=== PATIENT | female | born 2005 | race Caucasian/White ===

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

== ENCOUNTER 2023-08-24 18:50 | Emergency (ER) | payer SELFPAY ==
[~2023-08-24] VITALS: Ht 175.3 cm; Wt 104.0 kg
[~2023-08-24 18:50] MED LIST: CEPH500C PO; PRED20TA2 PO; PROM1SOL4 PO
[2023-08-24] MEDS: CLINDAMYCIN 900MG IV 50 ML IV ONE (21:30)
[2023-08-24] MEDS: cefTRIAXone 1GM/50ML D5W 50 ML IV ONE (21:30)
[2023-08-24] MEDS ORDERED: ACET500T58 PO (21:35)
[2023-08-24] MEDS ORDERED: CLIN1CAP70 PO (21:35)
[2023-08-24] MEDS: cefTRIAXone SOD 1,000 MG VL IM ONE (22:34)
[2023-08-24] MEDS: BENZOCAINE (DENTAL) 20 % SPRAY 60ML MT ONE (22:35)
[2023-08-24 22:40] VITALS: BP 121/72; PULSE 78; RESP 18; TEMP 98.1; O2SAT 98
== END 2023-08-24 22:55 | disposition home or self-care (01) ==
LOC: ER 18:50
DX: K04.7 Periapical abscess without sinus (principal); Z88.0 Allergy status to penicillin; Z79.1 Long term (current) use of non-steroidal anti-inflammatories (NSAID); Z79.52 Long term (current) use of systemic steroids; Z90.89 Acquired absence of other organs; F17.210 Nicotine dependence, cigarettes, uncomplicated
CPT/HCPCS: 96372; 99283; J0696; J3490

== ENCOUNTER 2024-06-25 21:06 | Emergency (ER) | payer MEDICAID ==
[~2024-06-25] VITALS: Ht 175.3 cm; Wt 95.8 kg
[~2024-06-25 21:06] MED LIST changes: +ACET500T58 PO; +CLIN1CAP70 PO
[2024-06-25 21:45] VITALS: BP 103/68; PULSE 101; RESP 21; TEMP 98.4; O2SAT 95
[2024-06-25] MEDS: ONDANSETRON HCL 4 MG/2 ML VIAL IV ONE (21:45)
--- NOTE | 2024-06-25 21:45 | ED.PDOC ---
SOB-HPI HPI Comments 19-year-old female came to ER due to shortness of breath. Patient denies any medical problems. States for the past few days she has been having productive cough with yellowish phlegm associated shortness of breath. Denies any fever nausea or vomiting. Denies any possibility of . Upon arrival, blood pressure was 90/60 mm Hg, tachycardic at 110 beats per minute, and saturating at 90% room air Chief Complaint: Shortness of breath Time Seen by MD: 21:45 Primary Care Provider: UNKNOWN Reviewed notes: Nurses Notes Information Source: Patient Mode of Arrival: Ambulatory Severity: Moderate Timing: Hours Duration: Intermittent Context: At Rest, With Light Exertion History of: None Prehospital treatment: None Associated Signs and Symptoms: Cough If cough with SOB: Productive, Yellow Past Medical History PAST MEDICAL HISTORY: Denies Surgical History: Tonsillectomy MANAGER GAME History: No Pertinent MANAGER GAME History Family History Family History: No family hx of Cancer, No family hx of DM, No family hx of Heart marian, Family hx of heart marian Social History Smoker: Cigarettes, Less Than 1 Pack/Day Alcohol: Denies ETOH Use Drugs: Denies Drug Use Lives In: Home Constitutional: denies: chills, diaphoresis, fatigue, fever, malaise, sweats, weakness, others EENTM: denies: blurred vision, double vision, ear bleeding, ear discharge, ear drainage, ear pain, ear ringing, eye pain, eye redness, hearing loss, mouth pain, mouth swelling, nasal discharge, nose bleeding, nose congestion, nose pain, photophobia, tearing, throat pain, throat swelling, voice changes, others Respiratory: reports: cough, SOB at rest, shortness of breath, SOB with excertion; denies: hemoptysis, orthopnea, stridor, wheezing, others Cardiovascular: denies: chest pain, dizzy spells, diaphoresis, Dyspnea on exertion, edema, irregular heart beat, left arm pain, lightheadedness, palpitations, PND, syncope, others Gastrointestinal: denies: abdomen distended, abdominal pain, blood streaked bowels, constipated, diarrhea, dysphagia, difficulty swallowing, hematemesis, melena, nausea, poor appetite, poor fluid intake, rectal bleeding, rectal pain, vomiting, others Genitourinary: denies: abnormal vagina bleeding, burning, dyspareunia, dysuria, flank pain, frequency, hematuria, incontinence, pain, , vagina discharge, urgency, others Neurological: denies: dizziness, fainting, headache, left sided numbness, left sided weakness, numbness, paresthesia, pre-existing deficit, right sided numbness, right sided weakness, seizure, speech problems, tingling, tremors, weakness, others Musculoskeletal: denies: back pain, gout, joint pain, joint swelling, muscle pain, muscle stiffness, neck pain, others Integumetry: denies: bruises, change in color, change in hair/nails, dryness, laceration, lesions, lumps, rash, wounds, others Allergic/Immunocompromised: denies: Difficulty Healing, Frequent Infections, Hives, Itching, others Hematologic/Lymphatic: denies: anemia, blood clots, easy bleeding, easy bruising, swollen glands, others Endocrine: denies: excessive hunger, excessive sweating, excessive thirst, excessive urination, flushing, intolerance to cold, intolerance to heat, unexplained weight gain, unexplained weight loss, others Psychiatric: denies: anxiety, bipolar disorder, depression, hopeless, panic disorder, schizophrenia, sleepless, suicidal, others Physical Exam General Appearance: No Apparent Distress, Normal HEENT: Normal ENT Inspection, Pharynx Normal, TMs Normal Neck: Full Range of Motion, Non-Tender, Normal, Normal Inspection Respiratory: Chest Non-Tender, Lungs Clear, No Accessory Muscle Use, No Respiratory Distress, Normal Breath Sounds Cardiovascular: No Edema, No JVD, No Murmur, No Gallop, Normal Peripheral Pulses, Regular Rate/Rhythm Breast Exam: Deferred Gastrointestinal: No Organomegaly, Non Tender, No Pulsatile Mass, Normal Bowel Sounds, Soft Genitalia: Deferred Pelvic: Deferred Rectal: Deferred Extremities: No calf tenderness, Normal capillary refill, Normal inspection, Normal range of motion, Non-tender, No pedal edema Musculoskeletal : Apperance: Normal Neurologic: Alert, pharmacy data analyst II-XII nml as Tested, No Motor Deficits, Normal Affect, Normal Mood, No Sensory Deficits Cerebellar Function: Normal Reflexes: Normal Skin: Dry, Normal Color, Warm Lymphatic: No Adenopathy Was a procedure done? Was a procedure done?: No Differential Dx Differential Diagnosis: Anxiety, Bronchitis, Pneumonia, Respiratory Distress, URI X-Ray, Labs, Meds, VS Vital Signs Date Time Temp Pulse Resp B/P (MAP) Pulse Ox O2 Delivery O2 Flow Rate FiO2 06/25/24 21:40 97.4 112 18 91/63 (72) 85 97.4 Lab Test 06/25/24 22:47 06/25/24 22:22 06/25/24 21:55 Range/Units Troponin I High Sensitivity < 3 L < 3 L </=34 ng/L Urine Color Yellow Yellow Urine Clarity Turbid H Clear Urine pH 5.5 5.0-9.0 Urine Specific Nak[place] 1.032 1.001-1.035 Urine Protein 1+ H Negative Urine Ketones Trace Negative Urine Blood Negative Negative /uL Urine Nitrite Negative Negative Urine Bilirubin Negative Negative Urine Urobilinogen 3 H Negative mg/dL Urine Leukocyte Esterase Trace Negative /uL Urine RBC 3 0 - 4 /hpf Urine Microscopic WBC 14 H 0-5 /HPF Urine Squamous Epithelial Cells Many <5 /hpf Urine Bacteria Few H None Seen /hpf Urine Mucus Few None Seen Urine Glucose Normal Normal mg/dL Urine Test Negative Negative Urine Opiates Screen Neg NEGATIVE Urine Fentanyl Screen Pos NEGATIVE Urine Barbiturates Screen Neg NEGATIVE Urine Phencyclidine Screen Neg NEGATIVE Urine Amphetamines Screen Pos NEGATIVE Urine Benzodiazepines Screen Neg NEGATIVE Urine Cocaine Screen Neg NEGATIVE Urine Cannabinoids Screen Neg NEGATIVE White Blood Count 11.7 H 4.4-10.8 10^3/uL Red Blood Count 5.15 4.0-5.20 10^6/uL Hemoglobin 14.0 12.2-16.2 g/dL Hematocrit 43.2 36.0-46.0 % Mean Corpuscular Volume 83.8 80.0-100.0 fL Mean Corpuscular Hemoglobin 27.2 L 28.0-32.0 pg Mean Corpuscular Hemoglobin Concent 32.4 32.0-36.0 g/dL Red Cell Distribution Width 15.2 H 11.8-14.3 % Platelet Count 278 140-450 10^3/uL Mean Platelet Volume 8.6 6.9-10.8 fL Neutrophils (%) (Auto) 74.6 37.0-80.0 % Lymphocytes (%) (Auto) 18.0 10.0-50.0 % Monocytes (%) (Auto) 5.4 0.0-12.0 % Eosinophils (%) (Auto) 1.3 0.0-7.0 % Basophils (%) (Auto) 0.7 0.0-2.0 % Neutrophils # (Auto) 8.7 H 1.6-8.6 10 ^3/uL Lymphocytes # (Auto) 2.1 0.4-5.4 10 ^3/uL Monocytes # (Auto) 0.6 0-1.3 10 ^3/uL Eosinophils # (Auto) 0.1 0-0.8 10 ^3/uL Basophils # (Auto) 0.1 0-0.2 10 ^3/uL Nucleated Red Blood Cells 0.0 % Sodium Level 141 136-145 mmol/L Potassium Level 4.2 3.5-5.1 mmol/L Chloride Level 104 98-107 mmol/L Carbon Dioxide Level 28 20-31 mmol/L Anion Gap 9 5-15 Blood Urea Nitrogen 12 9-23 mg/dL Creatinine 0.87 0.550-1.02 mg/dL Glomerular Filtration Rate Calc 97 >90 mL/min BUN/Creatinine Ratio 13.8 10.0-20.0 Serum Glucose 98 74-106 mg/dL Lactic Acid Level 1.6 0.4-2.0 mmol/L Calcium Level 10.5 H 8.7-10.4 mg/dL Total Bilirubin 0.3 0.2-1.0 mg/dL Aspartate Amino Transferase (AST) 14 13-40 U/L Alanine Aminotransferase (ALT) 12 7-40 U/L Alkaline Phosphatase 92 46-116 U/L B-Type Natriuretic Peptide 9.07 0-100 pg/mL Total Protein 7.9 5.7-8.2 g/dL Albumin 4.8 3.2-4.8 g/dL Current Medications Medications (Trade) Dose Ordered Sig/Eleanor Route Start Time Stop Time Status Last Admin Vancomycin HCl 200 ml @ 200 mls/hr ONCE ONCE IV 06/25/24 21:45 06/25/24 22:44 DC 06/25/24 22:13 Time of 1ST Reevaluation: 21:41 Reevaluation 1ST: Unchanged Patient Education/Counseling: Diagnosis, Treatment Family Education/Counseling: No Family Present Departure 1 Departure Time of Disposition: 23:38 (Patient presents with concern for sepsis. Patient given 3 L of fluid empirically started on antibiotics we will admit patient for further workup) Impression: Primary Impression: Sepsis Qualified Codes: A41.9 - Sepsis, unspecified organism Additional Impressions: Fever Qualified Codes: R50.9 - Fever, unspecified Generalized weakness Disposition: ADMITTED INPATIENT Admit to: Med Surg Condition: Serious Critical Care Note Critical Care Time?: Yes Critical care comment: Sepsis Authorized and Performed by: Tracey Haskins MD Total critical care time: Approximately 39 minutes Due to a high probability of clinically significant, life threatening deterioration, the patient required my highest level of preparedness to intervene emergently and I personally spent this critical care time directly and personally managing the patient. This critical care time included obtaining a history; examining the patient; pulse oximetry; ordering and review of studies; arranging urgent treatment with development of a management plan; evaluation of patient's response to treatment; frequent reassessment; and, discussions with other providers. This critical care time was performed to assess and manage the high probability of imminent, life-threatening deterioration that could result in multi-organ failure. It was exclusive of separately billable procedures and treating other patients and teaching time. Please see my other sections and the rest of the note for further information on patient assessment and treatment. Stability Stability form required: No Heart Score Heart Score: Heart Score Response (Comments) Value History N/A 0 EKG N/A 0 Age N/A 0 Risk Factors N/A 0 Troponin N/A 0 Total 0 I personally scribed for TRACEY HASKINS MD ([email or web address]) on 06/25/24 at 21:45. Electronically submitted by Zbigniew Mora ([facility]). TRACEY HASKINS MD June 25, 2024 21:45
[2024-06-25 22:06] LABS: Basophils # (auto) 0.1 10 ^3/uL (0-0.2); Basophils % (auto) 0.7 % (0.0-2.0); Eosinophils # (auto) 0.1 10 ^3/uL (0-0.8); Eosinophils % (auto) 1.3 % (0.0-7.0); Hematocrit 43.2 % (36.0-46.0); Lymphocytes # (auto) 2.1 10 ^3/uL (0.4-5.4); Mean Corpuscular Hemoglobin 27.2 pg (28.0-32.0); Mean Corpuscular Hgb Conc. 32.4 g/dL (32.0-36.0); Mean Corpuscular Volume 83.8 fL (80.0-100.0); Monocytes # (auto) 0.6 10 ^3/uL (0-1.3); Monocytes % (auto) 5.4 % (0.0-12.0); Neutrophils # (auto) 8.7 10 ^3/uL (1.6-8.6); Neutrophils % (auto) 74.6 % (37.0-80.0); Platelet Count (auto) 278 10^3/uL (140-450); Red Blood Cells 5.15 10^6/uL (4.0-5.20); Red Cell Distribution Width 15.2 % (11.8-14.3); White Blood Cell 11.7 10^3/uL (4.4-10.8)
[2024-06-25] MEDS: VANCOMYCIN 1GM/200ML PM 200 ML IV ONE (22:13)
[2024-06-25 22:24] LABS: Alanine Aminotransferase 12 U/L (7-40); Albumin 4.8 g/dL (3.2-4.8); Alkaline Phosphatase 92 U/L (46-116); Anion Gap 9 (5-15); Aspartate Aminotransferase 14 U/L (13-40); BUN/Creatinine Ratio 13.8 (10.0-20.0); Bilirubin, Total 0.3 mg/dL (0.2-1.0); Blood Urea Nitrogen 12 mg/dL (9-23); Carbon Dioxide 28 mmol/L (20-31); Chloride 104 mmol/L (98-107); Glucose 98 mg/dL (74-106); Potassium 4.2 mmol/L (3.5-5.1); Sodium 141 mmol/L (136-145); Total Protein 7.9 g/dL (5.7-8.2)
[2024-06-25 22:28] LABS: Calcium 10.5 mg/dL (8.7-10.4)
[2024-06-25 22:40] LABS: Urine Bacteria FEW /hpf (None Seen); Urine Blood Negative /uL (Negative); Urine Clarity Turbid (Clear); Urine Color Yellow (Yellow); Urine Mucus FEW (None Seen); Urine Protein, UAD 1+ (Negative); Urine Specific Gravity 1.032 (1.001-1.035); Urine Squamous Epithelial Cell MANY /hpf (<5); Urine Urobilinogen 3 mg/dL (Negative); Urine WBC 14 /HPF (0-5); Urine pH 5.5 (5.0-9.0)
[2024-06-25 22:47] LABS: Cannabinoid Screen, Urine Neg (NEGATIVE)
[2024-06-25 22:48] LABS: Amphetamine Screen, Urine Pos (NEGATIVE); Barbiturate Scree,Urine Neg (NEGATIVE); Benzodiazephine Screen, Urine Neg (NEGATIVE); Cocaine Screen, Urine Neg (NEGATIVE); Opiate Scree,Urine Neg (NEGATIVE); Phencyclidine Screen, Urine Neg (NEGATIVE)
--- NOTE | 2024-06-25 23:23 | DVH ---
CHEST RADIOGRAPH Indication: sob Technique: Single frontal view of the chest was obtained Comparison: XY CHEST XRAY 1 VIEW on DOS: 06/06/23 FINDINGS: Lines and Tubes: None Lungs: Bilateral perihilar peribronchial thickening questionable bronchitis Pleura: No effusion. No pneumothorax. Cardiomediastinal contours: Unremarkable Bones: No acute osseous abnormality. IMPRESSION: 1. Bilateral perihilar peribronchial thickening questionable bronchitis.
[2024-06-25] MEDS: SODIUM CHLORIDE 0.9% 3,000 ML IV ONE (23:25)
[2024-06-25] MEDS: CEFEPIME 2GM/50ML NS 50 ML IV ONE (23:28)
== END 2024-06-26 01:47 | disposition left against medical advice (07) ==
LOC: ER 21:13
DX: A41.9 Sepsis, unspecified organism (principal); R53.1 Weakness; R50.9 Fever, unspecified; F17.210 Nicotine dependence, cigarettes, uncomplicated; Z90.89 Acquired absence of other organs; Z79.899 Other long term (current) drug therapy; Z32.02 Encounter for pregnancy test, result negative
CPT/HCPCS: 36415; 71045; 80053; 80307; 81001; 81025; 83605; 83880; 84484; 85025; 87040; 96365; 96366; 96367; 99291; J0692; J3370; J2405

== ENCOUNTER 2024-10-12 22:09 | Emergency (ER) | payer MEDICAID ==
[~2024-10-12] VITALS: Ht 175.3 cm; Wt 86.3 kg
--- NOTE | 2024-10-12 22:22 | ED.PDOC ---
Altered Mental Status HPI Comments HPI: 19 year old female presents to the emergency department via EMS with a chief complaint of overdose onset today (10/12/24). Per EMS, patient was inside [facility], restroom stall, was found by bystander, unresponsive by toilet. She was given 2 mg Narcan IN, 1 mg Narcan IV, responded, was GCS 3. Upon ED arrival, patient is back to baseline, answering questions appropriately. Patient states she smoked Fentanyl, was 40 days sober, is currently homeless. No other symptoms or modifying factors present at this time. Initial Vitals BP: 148/96 HR: 109 RR: 20 O2: 99% Temp: 98.7 F Past Medical History: Denies Past Surgical History: tonsillectomy Social History: Denies ETOH. Smokes cigarettes, fentanyl use Medications: Denies Allergies: Penicillin Maki: HPI: Poor Historian. Homeless, fentanyl use. Past Medical History: Past Surgical History: REVIEW OF SYSTEMS: CONSTITUTIONAL: Denies acute: fever, diaphoresis, chills, HEAD: Denies acute: headache, photophobia Eyes: Denies acute: Double vision, vision loss, eye pain, eye discharge. EARS: Denies acute: tinnitus, hearing loss, ear discharge, ear pain, THROAT: Denies acute: sore throat, swelling, difficulty swallowing , pain with swallowing, change in voice. NECK: Denies acute: neck pain, neck swelling, stiff neck. HEART: Denies acute : chest pain, palpitations, LUNGS: Denies acute: SOB, wheezing, cough, hemoptysis ABDOMEN: Denies acute: abdominal pain, Nausea, Vomiting, diarrhea, melena , hematemesis, hematochezia SKIN: Denies acute: rash, redness, lesions, itchiness. EXTREMITIES: Denies acute: calf pain, numbness, tingling, weakness, denies pain in extremity. Denies acute: Low back pain. Neuro: Denies acute: focal neurological deficit, motor or sensory focal neurological deficit, tremors, seizure like activity, confusion, dizziness, change in mental status, loss of bowel or bladder function, cauda equina like symptoms. : Denies acute: dysuria, hematuria, flank pain, increase in urinary frequency. PSYCH: Denies acute: hallucination, suicidal ideation, homicidal ideation. FEMALE: Denies acute: abnormal vaginal bleeding, foul odor, unusual discharge. PHYSICAL EXAM: General: -----no---acute distress, awake and alert. Head: normocephalic, atraumatic. Neck: supple, trachea is midline, no swelling. Cervical spine: Palpation of the posterior midline of the cervical spine reveals no focal swelling, erythema, focal tenderness to palpation. Patient has normal range of motion. Throat: Normal phonation. Eyes:, no erythema, no purulent discharge, no proptosis, no icterus. Heart: regular rate, regular rhythm, no significant murmur appreciated. Lungs: no apparent respiratory distress, Able to speak in full sentences. No wheezing, no rhonchi, no crackles. No stridors Clear to auscultation bilaterally. Abdomen: non tender to palpation, non distended, soft, no guarding, no rebound, + bowel sounds. Neuro: Awake, Alert, oriented to name, self, situation, follows commands GCS=15. Speech is normal. Skin: no petechia, no purpura, no cyanosis, non-pale, not jaundice. Lower extremities: --no - Pitting edema no deformity, no focal swelling, no calf TTP. Makes eye contact. moves all four extremities. Face: no apparent facial droop. No nuchal rigidity, Kernig's sign, Brudzinski's sign, no meningeal signs. ED COURSE: DISCLAIMER: This medical document was created using an electronic medical record system with voice recognition software and computerized dictation system. Although this document has been carefully reviewed, there might still be some phonetic and typographical errors. Occasional wrong-word or "sound-alike" substitutions may have occurred due to the inherent limitations of voice recognition software. These areas are purely typographical due to imperfections of the software programs and do not reflect any compromise in the patient's medical care. Please read the chart carefully and recognize, using context, where these substitutions have occurred. Time Seen by MD: 22:15 Primary Care Provider: UNKNOWN Reviewed Notes: Medications, Allergies Allergies: Coded Allergies: Penicillins (Verified Allergy, Severe, 06/06/23) Home Meds Active Scripts Acetaminophen (Acetaminophen) 500 Mg Tab, 500 MG PO Q4HPRN, #30 TAB 0 Refills Prov:FIFI VELASQUEZ 08/24/23 Clindamycin Hcl (Clindamycin Hcl) 300 Mg Cap, 300 MG PO QID for 7 Days, #28 CAP 0 Refills Prov:FIFI VELASQUEZ 08/24/23 Promethazine-Dm (Promethazine Dm 6.25-15 mg/5Ml) 1 Claudia Claudia, 5 ML PO TID, #150 ML Prov:JL DIAMOND 06/06/23 Cephalexin Monohydrate (Cephalexin) 500 Mg Cap, 1 CAP PO QID, #28 CAP Prov:JL DIAMOND 06/06/23 Prednisone (Prednisone) 20 Mg Tab, 60 MG PO DAILY, #15 TAB Prov:JL DIAMOND 06/06/23 Information Source: Patient, Emergency Med Personnel Mode of Arrival: Ambulatory Severity: Moderate Timing: Hours Duration: Since onset Prehospital treatment: Other (Narcan 3 mg) Quality: Decreased Alertness, Change in Behavior History of: Other Past Medical History PAST MEDICAL HISTORY: Denies Surgical History: Tonsillectomy COOK CHIEF History: No Pertinent COOK CHIEF History Family History Family History: No family hx of Cancer, No family hx of DM, No family hx of Heart marian, Family hx of heart marian Social History Smoker: Cigarettes, Less Than 1 Pack/Day Alcohol: Denies ETOH Use Drugs: Other Lives In: Homeless Was a procedure done? Was a procedure done?: No X-Ray, Labs, Meds, VS Vital Signs Date Time Temp Pulse Resp B/P (MAP) Pulse Ox O2 Delivery O2 Flow Rate FiO2 10/13/24 02:00 110 20 106/58 (74) 92 10/13/24 00:30 108 13 92/45 (61) 96 10/12/24 22:52 93 14 96 Room Air* 0 21 10/12/24 22:52 98.1 97 18 106/66 (79) 98 98.1 10/12/24 22:20 98.7 109 20 148/96 99 98.7 10/12/24 22:10 98 Lab Test 10/13/24 00:21 10/12/24 22:33 Range/Units POC Glucose 112 H 70-106 mg/dl White Blood Count 13.4 H 4.4-10.8 10^3/uL Red Blood Count 4.87 4.0-5.20 10^6/uL Hemoglobin 13.7 12.2-16.2 g/dL Hematocrit 40.7 36.0-46.0 % Mean Corpuscular Volume 83.6 80.0-100.0 fL Mean Corpuscular Hemoglobin 28.1 28.0-32.0 pg Mean Corpuscular Hemoglobin Concent 33.6 32.0-36.0 g/dL Red Cell Distribution Width 14.7 H 11.8-14.3 % Platelet Count 352 140-450 10^3/uL Mean Platelet Volume 8.6 6.9-10.8 fL Neutrophils (%) (Auto) 69.3 37.0-80.0 % Lymphocytes (%) (Auto) 23.6 10.0-50.0 % Monocytes (%) (Auto) 4.3 0.0-12.0 % Eosinophils (%) (Auto) 2.1 0.0-7.0 % Basophils (%) (Auto) 0.7 0.0-2.0 % Neutrophils # (Auto) 9.3 H 1.6-8.6 10 ^3/uL Lymphocytes # (Auto) 3.2 0.4-5.4 10 ^3/uL Monocytes # (Auto) 0.6 0-1.3 10 ^3/uL Eosinophils # (Auto) 0.3 0-0.8 10 ^3/uL Basophils # (Auto) 0.1 0-0.2 10 ^3/uL Nucleated Red Blood Cells 0.0 % Sodium Level 138 136-145 mmol/L Potassium Level 3.4 L 3.5-5.1 mmol/L Chloride Level 100 98-107 mmol/L Carbon Dioxide Level 28 20-31 mmol/L Anion Gap 10 5-15 Blood Urea Nitrogen 16 9-23 mg/dL Creatinine 0.98 0.550-1.02 mg/dL Glomerular Filtration Rate Calc 84 >90 mL/min BUN/Creatinine Ratio 16.3 10.0-20.0 Serum Glucose 64 L 74-106 mg/dL Calcium Level 9.6 8.7-10.4 mg/dL Total Bilirubin 0.3 0.2-1.0 mg/dL Aspartate Amino Transferase (AST) 16 13-40 U/L Alanine Aminotransferase (ALT) 15 7-40 U/L Alkaline Phosphatase 98 46-116 U/L Troponin I High Sensitivity < 3 L </=34 ng/L Total Protein 8.0 5.7-8.2 g/dL Albumin 5.0 H 3.2-4.8 g/dL Current Medications Medications (Trade) Dose Ordered Sig/Eleanor Route Start Time Stop Time Status Last Admin Sodium Chloride 1,000 ml @ 1,000 mls/hr Q1H ONCE IV 10/12/24 22:30 10/12/24 23:29 DC 10/12/24 22:44 Time of 1ST Reevaluation: 22:45 Reevaluation 1ST: Unchanged Time of 2ND Reevaluation: 04:28 (notifed cameras were checked, patient left ED with IV in place, S.O was called) Patient Education/Counseling: Diagnosis, Treatment Family Education/Counseling: No Family Present Departure 1 Departure Time of Disposition: 05:51 Impression: Primary Impression: Overdose of fentanyl Additional Impression: Eloped from emergency department Disposition: 07 LEFT AWOL/ELOPED Condition: Guarded Additional Instructions: Patient eloped Discharged With: Self Critical Care Note Critical Care Time?: No I personally scribed for KARYNA BURROUGHS DO ([email or web address]) on 10/12/24 at 22:22. Electronically submitted by Rebeca Elmore ([email or web address]). I personally scribed for KARYNA BURROUGHS DO ([email or web address]) on 10/12/24 at 22:27. Electronically submitted by Rebeca Elmore ([email or web address]). I personally scribed for KARYNA BURROUGHS DO ([email or web address]) on 10/12/24 at 23:00. Electronically submitted by Rebeca Elmore ([email or web address]). I personally scribed for KARYNA BURROUGHS DO ([email or web address]) on 10/12/24 at 23:41. Electronically submitted by Rebeca Elmore ([email or web address]). I personally scribed for KARYNA BURROUGHS DO ([email or web address]) on 10/13/24 at 04:29. Electronically submitted by Rebeca Elmore ([email or web address]). I personally scribed for KARYNA BURROUGHS DO ([email or web address]) on 10/13/24 at 04:30. Electronically submitted by Rebeca Elmore ([email or web address]). KARYNA BURROUGHS DO Oct 12, 2024 22:22
[2024-10-12] MEDS: SODIUM CHLORIDE 0.9% 1,000 ML IV ONE (22:44)
[2024-10-12 22:52] VITALS: PULSE 93; RESP 14; TEMP 98.1; O2SAT 96
--- NOTE | 2024-10-12 22:56 | ECG ---
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
[2024-10-12 23:16] LABS: Hematocrit 40.7 % (36.0-46.0); Hemoglobin 13.7 g/dL (12.2-16.2); Mean Corpuscular Hemoglobin 28.1 pg (28.0-32.0); Mean Corpuscular Volume 83.6 fL (80.0-100.0); Nucleated Red Blood Cells % 0.0 %
[2024-10-12 23:20] LABS: Alanine Aminotransferase 15 U/L (7-40); Alkaline Phosphatase 98 U/L (46-116); Anion Gap 10 (5-15); BUN/Creatinine Ratio 16.3 (10.0-20.0); Bilirubin, Total 0.3 mg/dL (0.2-1.0); Blood Urea Nitrogen 16 mg/dL (9-23); Calcium 9.6 mg/dL (8.7-10.4); Carbon Dioxide 28 mmol/L (20-31); Chloride 100 mmol/L (98-107); Sodium 138 mmol/L (136-145); Total Protein 8.0 g/dL (5.7-8.2)
[2024-10-12 23:22] LABS: Albumin 5.0 g/dL (3.2-4.8); Glucose 64 mg/dL (74-106); Potassium 3.4 mmol/L (3.5-5.1)
[2024-10-12] MEDS: NALOXONE HCL 1MG/ML 2ML SYRINGE IV ONE (23:27)
[2024-10-13 02:00] VITALS: BP 106/58; PULSE 110; RESP 20; O2SAT 92
== END 2024-10-13 04:30 | disposition left against medical advice (07) ==
LOC: ER 22:09 → EDBD 22:09 → ER 10-13 04:30
DX: T40.411A Poisoning by fentanyl or fentanyl analogs, accidental (unintentional), initial encounter (principal); F17.210 Nicotine dependence, cigarettes, uncomplicated; Z79.899 Other long term (current) drug therapy; Z90.89 Acquired absence of other organs; Z79.52 Long term (current) use of systemic steroids; Z59.00 Homelessness unspecified; Z88.0 Allergy status to penicillin; Y92.89 Other specified places as the place of occurrence of the external cause
CPT/HCPCS: 36415; 80053; 82947; 82962; 84484; 85025; 93005; 96360; 99285; J7030